=== PATIENT | female | born 1930 | race Caucasian/White ===

== ENCOUNTER 2019-06-05 21:14 | Emergency (ER) | payer MEDICARE, OTHER ==
[~2019-06-05] VITALS: Ht 152.4 cm; Wt 77.1 kg
[~2019-06-05 21:14] MED LIST: GLUCOPHAGE XR500 MG PO; KAPSPARGO SPRI100 MG PO; VITAMIN B-12500 MCG PO
[2019-06-05] MEDS ORDERED: CITALOPRAM HBR20 MG PO (21:22)
[2019-06-05] MEDS ORDERED: FUROSEMIDE20 MG PO (21:23)
[2019-06-05] MEDS ORDERED: POTASSIUM CHLOR8 ME1 PO (21:23)
== END 2019-06-06 00:09 | disposition home or self-care (01) ==
LOC: ED 21:14
DX: S43.015A Anterior dislocation of left humerus, initial encounter (principal); X58.XXXA Exposure to other specified factors, initial encounter; I10 Essential (primary) hypertension; E11.9 Type 2 diabetes mellitus without complications; F03.90 Unspecified dementia, unspecified severity, without behavioral disturbance, psychotic disturbance, mood disturbance, and anxiety; Z79.899 Other long term (current) drug therapy; Z79.84 Long term (current) use of oral hypoglycemic drugs
CPT/HCPCS: 73030; 73060; 96374; 99283-25; J3010

== ENCOUNTER 2019-06-14 15:08 | Emergency (ER) | payer MEDICARE, OTHER ==
[~2019-06-14] VITALS: Ht 152.4 cm; Wt 77.1 kg
[~2019-06-14 15:08] MED LIST changes: +CITALOPRAM HBR20 MG PO; +FUROSEMIDE20 MG PO; +POTASSIUM CHLOR8 ME1 PO
--- OUTSIDE RECORDS SUMMARY | 2019-06-14 15:12 | XMS ---
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 Ivon has no Care Guidelines for this patient. Misty VISIT COUNT (12 MO.) [address] [facility] TOTAL 2 NOTE: Visits indicate total known visits. ED/C VISIT TRACKING (12 MO.) 06/14/2019 15:[address] [facility] [place] TYPE: Emergency COMPLAINT: - FALL 06/05/2019 21:[address] [facility] [place] TYPE: Emergency COMPLAINT: - SWOLLEN ARM DIAGNOSES: - Anterior dislocation of left humerus, initial encounter - Other intermediate (current) drug therapy - Exposure to other specified factors, initial encounter - 1 Type 2 diabetes mellitus without complications - group home (current) use of oral hypoglycemic drugs - Essential (primary) hypertension - Unspecified dementia without behavioral disturbance - Anterior dislocation of left humerus, initial encounter INPATIENT VISIT TRACKING (12 MO.) No inpatient visits to display in this time frame [email or web address]
[2019-06-14] MEDS ORDERED: TYLENOL325 MG PO (15:32)
== END 2019-06-14 20:40 | disposition home or self-care (01) ==
LOC: ED 15:08
DX: S43.015A Anterior dislocation of left humerus, initial encounter (principal); S00.01XA Abrasion of scalp, initial encounter; F03.90 Unspecified dementia, unspecified severity, without behavioral disturbance, psychotic disturbance, mood disturbance, and anxiety; W19.XXXA Unspecified fall, initial encounter; I10 Essential (primary) hypertension; E11.9 Type 2 diabetes mellitus without complications; Z79.899 Other long term (current) drug therapy; Z79.84 Long term (current) use of oral hypoglycemic drugs
CPT/HCPCS: 51701; 70450; 71045; 80053; 81001; 85025; 99284-25; J7030